=== PATIENT | female | born 1990 | race Caucasian/White ===

== ENCOUNTER 2021-12-06 04:12 | Emergency (ER) | payer OTHER ==
[2021-12-06] MEDS ORDERED: Ondansetron 4 MG/2 ML SDV IVPUSH ONE (04:41)
[2021-12-06] MEDS ORDERED: Sodium Chloride 0.9% 10 ML Syringe FLUSH PRN (04:41)
[2021-12-06] MEDS ORDERED: Sodium Chloride 0.9% 1,000 ML IV SCH (04:45)
== END 2021-12-06 06:18 | disposition home or self-care (01) ==
LOC: JP.ED 04:12
DX: E86.0 Dehydration (principal); E16.2 Hypoglycemia, unspecified; E87.6 Hypokalemia; Z78.9 Other specified health status
CPT/HCPCS: 36415; 80048; 85025; 96361; 96374; 99284; J2405; J3490; J7030